=== PATIENT | male | born 1965 | race Caucasian/White ===

== ENCOUNTER 2016-08-27 02:22 | Inpatient (IN) | payer MEDICARE ==
--- NOTE | ~2016-08-27 | DS ---
Discharge Summary [facility] [address] [place]. [address] NAME: ZAIRA MARI : 69 STATUS : DIS IN PAT#: [id number] AGE: 51 ADM/REG DATE : 08/27/16 MR#: [id number] REPORT SERV DATE: 11/16/16 DICTATED BY: ESTEBAN MILAN DATE: 11/15/16 REPORT STATUS : Draft TRANSCRIBED BY: AVERY DATE: 11/15/16 ADMISSION DATE: 08/27/2016 DISCHARGE DATE: 08/27/2016 ADMISSION DIAGNOSIS: Myocardial infarction. HISTORY OF PRESENT ILLNESS: For history of present illness, past medical history, medications, and initial physical exam, please refer to admission summary dictated on 08/27/2016. INTERVAL HISTORY: The patient underwent primary PCI to his culprit RCA in the setting of an acute inferior GA. He is subsequently admitted to the coronary care unit. His sheath was left in place as a closure device was not used. Subsequently, he reported frustration with the CCU staff and expressed a desire to leave the hospital. He was informed that we would first need to remove the sheath and obtain hemostasis before consideration of letting him lead. After this was performed. The patient insisted on leaving the hospital and was informed that doing so would require him to leave against medical advice. He decided to do so and filled out the requisite paperwork. My attempts to communicate him are limited due to the fact that I was dealing with another patient having the myocardial infarction and thus had to communicate through nurses. Unfortunately, he left the hospital against medical advice. MICHAEL/AVERY Esteban Milan MD / [id number] CC: Esteban Milan MD
--- NOTE | ~2016-08-27 | HP ---
History And Physical [id number] [place]. [address] NAME: ZAIRA MARI : 69 STATUS : ADM IN [facility]#: [id number] AGE: 51 ADM/REG DATE : 08/27/16 MR#: [id number] REPORT SERV DATE: 08/27/16 DICTATED BY: ESTEBAN MILAN DATE: 08/27/16 REPORT STATUS : Draft TRANSCRIBED BY: MODL DATE: 08/27/16 DATE OF ADMISSION: 08/27/2016 ADMISSION DIAGNOSIS: Myocardial infarction. HISTORY OF PRESENT ILLNESS: Mr. Mari is a 51-year-old male, who presented to [facility] ED via EMS for management of evolving acute inferior wall MN. He has a cardiac history notable for coronary heart disease with multiple stents placed over the course of his life, estimated at 22 total per his report. 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 He reports sudden onset of chest discomfort at approximately 11 p.m. the night before, persisting throughout the night, severe, and nonresponsive to nitroglycerin. EKG in the field was suggestive of inferior wall ST elevations, and a code STEMI was activated. 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 He reports that he has been taking aspirin, but has not been on additional anti-platelet therapy. PAST MEDICAL HISTORY: The patient reports 22 coronary stents; history of heart failure; diabetes, controlled with oral medications; ongoing tobacco use; and COPD. MEDICATIONS: He estimates 10 to 12 medications, but cannot provide the names at this time. Communication with his pharmacy is pending. ALLERGIES: ATIVAN. SOCIAL HISTORY: The patient is . He is unemployed. He smokes cigarettes. He denies alcohol or illicits. REVIEW OF SYSTEMS: Per HPI. Otherwise, negative. PHYSICAL EXAMINATION: VITAL SIGNS: Heart rate approximately 75, blood pressure 130/90, respiratory rate 24. GENERAL: Well-developed, overweight male, in obvious distress. HEENT: Sclerae anicteric. Mucous membranes are moist. NECK: Supple. CARDIOVASCULAR: Regular rhythm. No murmurs present. PULMONARY: Diminished breath sounds bilaterally. ABDOMEN: Soft, nondistended, nontender. EXTREMITIES: Warm. No edema. LABORATORY DATA: Labs are pending at the time of dictation. EKG from 08/27/2016, time 0214 hours, sinus rhythm with [address] elevations in 3 and aVF. T-wave inversions in V1 and History And Physical [address] [place]. [address] NAME: ZAIRA MARI : 69 STATUS : ADM IN PAT#: [id number] AGE: 51 ADM/REG DATE : 08/27/16 MR#: [id number] REPORT SERV DATE: 08/27/16 DICTATED BY: ESTEBAN MLIAN DATE: 08/27/16 REPORT STATUS : Draft TRANSCRIBED BY: MODL DATE: 08/27/16 V2. No prior EKG for comparison. EKG in this field demonstrates more prominent ST elevations inferiorly. Cardiac cath demonstrated an occlusion of the distal RCA within the AV groove artery after the takeoff of the PDA that was treated with angioplasty alone, as the patient has multiple overlapping stents in this region. A stent was also placed in the proximal segment for a severe 70% lesion. His left coronary was nonobstructive. LV gram is deferred. LVEDP was 22. IMPRESSION/RECOMMENDATIONS: 1. Acute inferior wall myocardial infarction. 2. Status post primary percutaneous coronary intervention with PEGGY to prox RCA and PTCA to distal RCA. 3. History of diabetes. 4. Chronic obstructive pulmonary disease. 5. Tobacco abuse. The patient will be admitted to CCU with standard secondary prevention medications after ACS including aspirin and Brilinta. I anticipate that he will mandate long-term antiplatelet therapy given his history of extensive stenting. We will start him on a beta-franci and TINO inhibitor. We will check his echocardiogram in the morning. Provide sliding scale insulin and tailor regimen as needed based on his blood glucose levels. DICTATION ENDS HERE. MICHAEL/AVERY Esteban Milan MD / [id number] CC: Esteban Milan MD
[2016-08-27 02:58] LABS: BASOPHILS 0.2 %; BASOPHILS ABSOLUTE 0.04 10/3/uL (0.0-0.16); EOSINOPHILS 0.6 %; ER CBC TAT 0 Hrs 07 Mins; HEMATOCRIT 42.1 % (40.0-51.0); HEMOGLOBIN 12.2 g/dL (13.6-17.8); IMMATURE GRANULOCYTES 0.3 %; IMMATURE GRANULOCYTES ABSOLUTE 0.05 10/3/uL (0.0-0.11); LYMPHOCYTES 8.9 %; LYMPHOCYTES ABSOLUTE 1.52 10/3/uL (0.67-4.30); MEAN CORPUSCULAR HEMOGLOB 21.6 pg (26.0-34.0); MEAN CORPUSCULAR VOLUME 74.5 fL (80-100); MONOCYTES 5.8 %; MONOCYTES ABSOLUTE 0.99 10/3/uL (0.21-1.20); NEUTROPHILS 84.2 %; PLATELET COUNT 209 10/3/uL (150-400); RED CELL COUNT 5.65 10/6/uL (4.7-6.1)
[2016-08-27 02:59] LABS: MANUAL DIFF NO %
[2016-08-27 03:03] LABS: INTERNATIONAL NORMAL RATI 1.1 UNITS (-); PARTIAL THROMBO TIME 31.4 SEC (22.5-37.2); PROTIME (NOT ORD) 14.4 SEC (12.0-14.5)
[2016-08-27 03:04] LABS: CREATININE 0.8 MG/DL (0.70-1.30)
[2016-08-27 03:13] LABS: BUN (BLOOD UREA NITROGEN) 15 MG/DL (6-23); CALCIUM, SERUM 8.6 MG/DL (8.5-10.4); CHEST PAIN PROFILE TAT 0 Hrs 22 Mins; CHLORIDE, SERUM 118 MMOL/L (96-112); CO2 (CARBON DIOXIDE) 20 MMOL/L (24-34); CREATININE 1.12 MG/DL (0.70-1.30); GFR AFRICAN AMERICAN 89 ML/MIN (>=60); GFR NON AFRICAN AMERICAN 77 ML/MIN (>=60); GLUCOSE, SERUM 143 MG/DL (60-99); POTASSIUM, SERUM 3.8 MMOL/L (3.5-5.3); SODIUM, SERUM 144 MMOL/L (135-148); TROPONIN I 0.06 NG/ML (<0.05)
[2016-08-27 03:39] LABS: ANISOCYTOSIS 1+ (5-10/OIF) (0-5/OIF); BAND NEUTROPHILS 1 %; EOSINOPHILS 1 %; EOSINOPHILS ABSOLUTE (CALC) 0.17 10/3/uL (0.0-0.53); ER DIFF TAT 0 Hrs 48 Mins; LYMPHOCYTES 6 %; LYMPHOCYTES ABSOLUTE (CALC) 1.02 10/3/uL (0.67-4.30); MICROCYTES 1+ (5-10/OIF) (0-5/OIF); MONOCYTES 3 %; MONOCYTES ABSOLUTE (CALC) 0.51 10/3/uL (0.21-1.20); PLATELET ESTIMATE ADQ (ADEQUATE); SEGMENTED NEUTROPHIL (0) 89 %; TOTAL NUCLEATED CELLS 100
[2016-08-27 04:43] LABS: CK-MB 2.5 NG/ML; CPK 158 U/L (0-200)
[2016-08-27 05:27] LABS: CHOL/HDL RATIO(NOT ORDER) 6.3 (0-5); CHOLESTEROL 170 MG/DL (< 200); HDL CHOLESTEROL 27 MG/DL (> 39); LDL CHOLESTEROL 115 MG/DL (< 130); NON-HDL CHOLESTEROL 143 MG/DL (< 160); TRIGLYCERIDE 141 MG/DL (< 150)
[2016-08-27] MEDS ORDERED: PROTONIX PO (10:09)
[2016-08-27] MEDS ORDERED: NEUR600 PO (10:09)
[2016-08-27] MEDS ORDERED: GLUCPH PO (10:09)
[2016-08-27] MEDS ORDERED: RANEXA1000 MG PO (10:09)
[2016-08-27] MEDS ORDERED: ROXICODONE15 MG PO (10:10)
[2016-08-27] MEDS ORDERED: PROZAC PO (10:10)
[2016-08-27] MEDS ORDERED: L80 PO (10:10)
[2016-08-27] MEDS ORDERED: PLAVIX PO (10:10)
[2016-08-27 12:37] LABS: CK-MB 112.8 NG/ML; CKMB INDEX (NOT ORD) 11.7
[2016-12-02] MEDS ORDERED: L40 PO (11:48)
[2016-12-02] MEDS ORDERED: ASA5GR PO (11:49)
[2016-12-02] MEDS ORDERED: VITC500 PO (11:55)
[2016-12-02] MEDS ORDERED: FERGON240 MG PO (11:55)
[2016-12-02] MEDS ORDERED: PRISTIQ50 MG PO ×2 (12:03→12:06)
[2016-12-02] MEDS ORDERED: LIPITOR20 PO (12:03)
[2016-12-05] MEDS ORDERED: ASAB PO (18:40)
[2016-12-05] MEDS ORDERED: LIPITOR40 PO (18:41)
[2016-12-05] MEDS ORDERED: COREG6 PO (18:42)
[2016-12-05] MEDS ORDERED: KLOR-CON M2020 MEQ PO (18:43)
== END 2016-08-27 14:25 | disposition left against medical advice (07) | DRG 246 ==
LOC: ER 02:22 → SSU2 02:28 → CCU 04:05
PROVIDERS: Internal Medicine Cardiovascular Disease; Specialist
PROC: 027034Z Dilation of Coronary Artery, One Artery with Drug-eluting Intraluminal Device, Percutaneous Approach (ICD-10-PCS; principal; 2016-08-27)
PROC: 4A023N7 Measurement of Cardiac Sampling and Pressure, Left Heart, Percutaneous Approach (ICD-10-PCS; 2016-08-27)
PROC: B2111ZZ Fluoroscopy of Multiple Coronary Arteries using Low Osmolar Contrast (ICD-10-PCS; 2016-08-27)
PROC: B2151ZZ Fluoroscopy of Left Heart using Low Osmolar Contrast (ICD-10-PCS; 2016-08-27)
DX: T82.867A Thrombosis due to cardiac prosthetic devices, implants and grafts, initial encounter (principal); I21.19 ST elevation (STEMI) myocardial infarction involving other coronary artery of inferior wall; I50.9 Heart failure, unspecified; I25.10 Atherosclerotic heart disease of native coronary artery without angina pectoris; E11.9 Type 2 diabetes mellitus without complications; F17.210 Nicotine dependence, cigarettes, uncomplicated; J44.9 Chronic obstructive pulmonary disease, unspecified; Z95.5 Presence of coronary angioplasty implant and graft
CPT/HCPCS: 71010; 80048; 80061; 82550; 82553; 82962; 83036; 83735; 84132; 84295; 84484; 85025; 85610; 85730; 87641; 92978; 93005; 93458; 96374; 96375; 99152; 99153; 99285; A9270-GY; C1713; C1725; C1753; C1769; C1874; C1887; C9606; J0583; J2250; J2370; J2405; J3010; Q9967